=== PATIENT | male | born 1955 | race Caucasian/White ===

== ENCOUNTER → 2018-04-11 | Outpatient (CLI) | payer BC, OTHER | LOC: RAD 14:08 | DX: J44.9 Chronic obstructive pulmonary disease, unspecified (principal); J98.11 Atelectasis; J98.4 Other disorders of lung ==

== ENCOUNTER → 2018-08-14 | Outpatient (CLI) | payer BC, OTHER | LOC: RAD 10:04 | DX: R10.31 Right lower quadrant pain (principal) ==